=== PATIENT | female | born 1960 | race Caucasian/White ===

== ENCOUNTER → 2017-08-20 | Outpatient (CLI) | payer MEDICARE, OTHER ==
--- NOTE | 2017-08-21 06:47 | MR ---
EXAMINATION TYPE: MR knee RT wo con DATE OF EXAM: 08/20/2017 COMPARISON: Outside MRI knee report June 12, 2016 HISTORY: Right knee pain per order. Pain and swelling with history of prior surgery since falling inj ury June 2017 TECHNIQUE: Multiplanar, multisequence images of the knee is performed without IV contrast. FINDINGS: MEDIAL MENISCUS: Anterior horn is intact without tear. Oblique increased signal posterior horn of med ial meniscus extends to inferior articular surface, findings are suggestive of full-thickness menisca l tear. Fraying along posterior margin is redemonstrated described in prior report. LATERAL MENISCUS: There is triangular shaped increased opacity superior aspect anterior horn of later al meniscus with vertical linear component on sagittal image 21 extending to articular surface. Later al extrusion is seen with marked increased signal anterior meniscal cyst formation on coronal image 2 0. CRUCIATE LIGAMENTS: The anterior and posterior cruciate ligaments are intact and unremarkable. COLLATERAL LIGAMENTS: The medial collateral ligament and lateral collateral ligament complex are inta ct and unremarkable. EXTENSOR MECHANISM: Visualized quadriceps and patellar tendons are intact. EFFUSION: No significant suprapatellar joint effusion. POPLITEAL CYST: There is tiny popliteal/barba cyst seen best axial image 7. TRICOMPARTMENT SPACES: Fairly moderate tricompartment joint space loss is seen. There is fairly moder ate tricompartment spurring. CARTILAGE: Some chondromalacia patella with thinning of posterior patellar articular cartilage is pre sent. No full-thickness loss is seen. There is thinning of articular cartilage medial tibiofemoral co mpartment. BONE MARROW SIGNAL: No focal abnormal marrow signal is appreciated. OTHER: No additional significant abnormality is appreciated. IMPRESSION: 1. Tearing of lateral meniscus with parameniscal cyst formation redemonstrated described in prior rep ort. 2. Suspect new oblique tear posterior horn of medial meniscus. 3. Mild to moderate tricompartment degenerative changes as detailed above, similar findings are discu ssed on prior report. 4. Tiny Barba's cyst.
== END | disposition home or self-care (01) ==
LOC: RADMRIMAIN 13:04
PROVIDERS: ATTEND Physician Assistant
DX: S83.281A Other tear of lateral meniscus, current injury, right knee, initial encounter (principal); M71.21 Synovial cyst of popliteal space [Baker], right knee

== ENCOUNTER → 2019-06-08 | Outpatient (CLI) | payer MEDICARE, OTHER ==
--- NOTE | 2019-06-08 14:42 | MM ---
Reason for exam: additional evaluation requested from abnormal screening. Last mammogram was performed less than 1 month ago. History: Patient is postmenopausal. Benign cyst aspiration, 1989. Physical Findings: Nurse did not find any significant physical abnormalities on exam. MG 3D Work Up W/Cad LT Spot compression CC, spot compression MLO, and ML view(s) were taken of the left breast. Prior study comparison: May 27, 2019, bilateral MG 3d screening mammo w/cad. March 20, 2017, mammogram, performed at [facility]. There are scattered fibroglandular densities. The questioned focal asymmetry disperses on additional views. No significant new findings when compared with previous films. These results were verbally communicated with the patient and result sheet given to the patient on 06/08/19. ASSESSMENT: Negative, BI-RAD 1 RECOMMENDATION: Return to routine screening mammogram schedule for both breasts. Manage on a clinical basis with regard to benign yellowish nipple discharge. Suspicious discharge warranting further evaluation includes clear or bloody spontaneous discharge localized to a single pore on the nipple.
== END | disposition home or self-care (01) ==
LOC: RADMAMWWP 12:59
PROVIDERS: ATTEND Family Medicine
DX: R92.8 Other abnormal and inconclusive findings on diagnostic imaging of breast (principal)
CPT/HCPCS: 77065; G0279; 77061

== ENCOUNTER 2019-06-10 16:18 | Inpatient (IN) | payer MEDICARE, OTHER ==
--- NOTE | 2019-06-10 17:52 | ED ---
Psych HPI - General Chief Complaint: Psychiatric Symptoms Stated Complaint: Medication issues Time Seen by Provider: 06/10/19 17:13 Source: patient, RN notes reviewed, old records reviewed Mode of arrival: ambulatory - History of Present Illness Initial Comments: This is a 59-year-old male the ER for evaluation. Patient here in the ER for evaluation regards to psychiatric illness. Patient states he doesn't want to commit suicide. Patient has history of psychiatric illness. Denies recent drug or alcohol abuse MD Complaint: suicidal ideation, feels depressed -: unknown Associated Psychiatric Symptoms: depression, suicidal ideation History of same: Yes Quality: constant Improves With: none Worsens With: none Context: not taking psychiatric medications Associated Symptoms: denies other symptoms Treatments Prior to Arrival: placed on mental health hold If Self Harm: admits thoughts of self harm - Related Data Home Medications Medication Instructions Recorded Confirmed Pravastatin Sodium [Pravachol] 40 mg PO HS 08/07/16 06/10/19 LORazepam [Ativan] 0.25 mg PO BID@0800,1200 06/10/19 06/10/19 LORazepam [Ativan] 1 mg PO HS 06/10/19 06/10/19 Nicotine 21Mg/24Hr Patch [Habitrol] 1 patch TRANSDERM DAILY 06/10/19 06/10/19 Topiramate [Topamax] 100 mg PO HS 06/10/19 06/10/19 Previous Rx's Medication Instructions Recorded Vortioxetine Hydrobromide 10 mg PO DAILY #14 tablet 06/15/19 [Trintellix] lamoTRIgine [LaMICtal] 100 mg PO HS #14 tab 06/15/19 rOPINIRole HCL [Requip] 0.25 mg PO HS #14 tab 06/15/19 Allergies Allergy/AdvReac Type Severity Reaction Status Date / Time Sulfa (Sulfonamide Allergy Rash/Hives Verified 06/10/19 21:56 Antibiotics) Review of Systems ROS Statement: Those systems with pertinent positive or pertinent negative responses have been documented in the HPI. ROS Other: All systems not noted in ROS Statement are negative. Past Medical History Past Medical History: Hyperlipidemia, Osteoarthritis (OA) History of Any Multi-Drug Resistant Organisms: None Reported Past Surgical History: Back Surgery, Hysterectomy, Orthopedic Surgery Additional Past Surgical History / Comment(s): arthroscopy, cataract removal Past Psychological History: Bipolar, Depression Smoking Status: Current every day smoker Past Alcohol Use History: None Reported Past Drug Use History: None Reported General Exam Limitations: no limitations General appearance: alert, in no apparent distress Head exam: Present: atraumatic, normocephalic, normal inspection Eye exam: Present: normal appearance, PERRL, EOMI. Absent: scleral icterus, conjunctival injection, periorbital swelling ENT exam: Present: normal exam, mucous membranes moist Neck exam: Present: normal inspection. Absent: tenderness, meningismus, lymphadenopathy Respiratory exam: Present: normal lung sounds bilaterally. Absent: respiratory distress, wheezes, rales, rhonchi, stridor Cardiovascular Exam: Present: regular rate, normal rhythm, normal heart sounds. Absent: systolic murmur, diastolic murmur, rubs, gallop, clicks GI/Abdominal exam: Present: soft, normal bowel sounds. Absent: distended, tenderness, guarding, rebound, rigid Extremities exam: Present: normal inspection, full ROM, normal capillary refill. Absent: tenderness, pedal edema, joint swelling, calf tenderness Back exam: Present: normal inspection Neurological exam: Present: alert, oriented X3, CN II-XII intact Psychiatric exam: Present: normal affect, normal mood Skin exam: Present: warm, dry, intact, normal color. Absent: rash Course Vital Signs 06/10/19 06/10/19 16:29 19:14 Temperature 98.3 F Pulse Rate 79 82 Respiratory 16 18 Rate Blood Pressure 116/77 106/67 O2 Sat by Pulse 97 100 Oximetry - Reevaluation(s) Reevaluation #1: 06/10/19 18:30 Medical clear for psychiatric illness Medical Decision Making - Medical Decision Making 59 female admitted for psychiatric evaluation and treatment - Lab Data Result diagrams: 06/11/19 09:15 06/11/19 09:15 Lab Results 06/10/19 06/10/19 06/10/19 Range/Units 18:03 18:03 19:50 WBC 9.0 (3.8-10.6) k/uL RBC 4.60 (3.80-5.40) m/uL Hgb 14.0 (11.4-16.0) gm/dL Hct 43.0 (34.0-46.0) % MCV 93.4 (80.0-100.0) fL MCH 30.5 (25.0-35.0) pg MCHC 32.6 (31.0-37.0) g/dL RDW 13.1 (11.5-15.5) % Plt Count 219 (150-450) k/uL Neutrophils % 66 % Lymphocytes % 25 % Monocytes % 5 % Eosinophils % 2 % Basophils % 0 % Neutrophils # 5.9 (1.3-7.7) k/uL Lymphocytes # 2.3 (1.0-4.8) k/uL Monocytes # 0.4 (0-1.0) k/uL Eosinophils # 0.2 (0-0.7) k/uL Basophils # 0.0 (0-0.2) k/uL Sodium 140 (137-145) mmol/L Potassium 3.9 (3.5-5.1) mmol/L Chloride 109 H (98-107) mmol/L Carbon Dioxide 21 L (22-30) mmol/L Anion Gap 10 mmol/L BUN 21 H (7-17) mg/dL Creatinine 0.99 (0.52-1.04) mg/dL Est GFR (CKD-EPI)AfAm 71 (>60 ml/min/1.73 sqM) Est GFR (CKD-EPI)NonAf 62 (>60 ml/min/1.73 sqM) Glucose 100 H (74-99) mg/dL Calcium 9.8 (8.4-10.2) mg/dL Urine Color Urine Appearance (Clear) Urine pH (5.0-8.0) Ur Specific Monarch (1.001-1.035) Urine Protein (Negative) Urine Glucose (UA) (Negative) Urine Ketones (Negative) Urine Blood (Negative) Urine Nitrite (Negative) Urine Bilirubin (Negative) Urine Urobilinogen (<2.0) mg/dL Ur Leukocyte Esterase (Negative) Urine RBC (0-5) /hpf Urine WBC (0-5) /hpf Salicylates <1.0 mg/dL Urine Opiates Screen Not Detected (NotDetected) Ur Oxycodone Screen Not Detected (NotDetected) Urine Methadone Screen Not Detected (NotDetected) Ur Propoxyphene Screen Not Detected (NotDetected) Acetaminophen <10.0 ug/mL Ur Barbiturates Screen Not Detected (NotDetected) U Tricyclic Antidepress Not Detected (NotDetected) Ur Phencyclidine Scrn Not Detected (NotDetected) Ur Amphetamines Screen Not Detected (NotDetected) U Methamphetamines Scrn Not Detected (NotDetected) U Benzodiazepines Scrn Detected H (NotDetected) Urine Cocaine Screen Not Detected (NotDetected) U Marijuana (THC) Screen Not Detected (NotDetected) Serum Alcohol <10 mg/dL 06/10/19 Range/Units 19:50 WBC (3.8-10.6) k/uL RBC (3.80-5.40) m/uL Hgb (11.4-16.0) gm/dL Hct (34.0-46.0) % MCV (80.0-100.0) fL MCH (25.0-35.0) pg MCHC (31.0-37.0) g/dL RDW (11.5-15.5) % Plt Count (150-450) k/uL Neutrophils % % Lymphocytes % % Monocytes % % Eosinophils % % Basophils % % Neutrophils # (1.3-7.7) k/uL Lymphocytes # (1.0-4.8) k/uL Monocytes # (0-1.0) k/uL Eosinophils # (0-0.7) k/uL Basophils # (0-0.2) k/uL Sodium (137-145) mmol/L Potassium (3.5-5.1) mmol/L Chloride (98-107) mmol/L Carbon Dioxide (22-30) mmol/L Anion Gap mmol/L BUN (7-17) mg/dL Creatinine (0.52-1.04) mg/dL Est GFR (CKD-EPI)AfAm (>60 ml/min/1.73 sqM) Est GFR (CKD-EPI)NonAf (>60 ml/min/1.73 sqM) Glucose (74-99) mg/dL Calcium (8.4-10.2) mg/dL Urine Color Light Yellow Urine Appearance Clear (Clear) Urine pH 6.0 (5.0-8.0) Ur Specific Monarch 1.008 (1.001-1.035) Urine Protein Negative (Negative) Urine Glucose (UA) Negative (Negative) Urine Ketones Negative (Negative) Urine Blood Small H (Negative) Urine Nitrite Negative (Negative) Urine Bilirubin Negative (Negative) Urine Urobilinogen <2.0 (<2.0) mg/dL Ur Leukocyte Esterase Negative (Negative) Urine RBC 5 (0-5) /hpf Urine WBC <1 (0-5) /hpf Salicylates mg/dL Urine Opiates Screen (NotDetected) Ur Oxycodone Screen (NotDetected) Urine Methadone Screen (NotDetected) Ur Propoxyphene Screen (NotDetected) Acetaminophen ug/mL Ur Barbiturates Screen (NotDetected) U Tricyclic Antidepress (NotDetected) Ur Phencyclidine Scrn (NotDetected) Ur Amphetamines Screen (NotDetected) U Methamphetamines Scrn (NotDetected) U Benzodiazepines Scrn (NotDetected) Urine Cocaine Screen (NotDetected) U Marijuana (THC) Screen (NotDetected) Serum Alcohol mg/dL Disposition Clinical Impression: Depression, Suicidal ideation Disposition: TRANSFER TO PSYCH HOSP/UNIT Condition: Stable Is patient prescribed a controlled substance at d/c from ED?: No
[2019-06-10 18:09] LABS: Basophils % (A) 0 %; Eosinophils # (A) 0.2 k/uL (0-0.7); Eosinophils % (A) 2 %; Lymphocytes # (A) 2.3 k/uL (1.0-4.8); Lymphocytes % (A) 25 %; MCH 30.5 pg (25.0-35.0); MCHC 32.6 g/dL (31.0-37.0); MCV 93.4 fL (80.0-100.0); Monocytes # (A) 0.4 k/uL (0-1.0); Monocytes % (A) 5 %; Neutrophils # (A) 5.9 k/uL (1.3-7.7); Neutrophils % (A) 66 %; Platelet Count 219 k/uL (150-450); RDW 13.1 % (11.5-15.5)
[2019-06-10 18:20] LABS: Acetaminophen <10.0 ug/mL; African American GFR (CKD) 71 (>60 ml/min/1.73 sqM); Alcohol <10 mg/dL; Anion Gap 10 mmol/L; Blood Urea Nitrogen 21 mg/dL (7-17); Calcium 9.8 mg/dL (8.4-10.2); Carbon Dioxide 21 mmol/L (22-30); Chloride 109 mmol/L (98-107); Glucose 100 mg/dL (74-99); Potassium 3.9 mmol/L (3.5-5.1); Salicylate <1.0 mg/dL; Sodium 140 mmol/L (137-145)
[2019-06-10 20:31] LABS: Appearance,Urine Clear (Clear); Bilirubin,Urine Negative (Negative); Blood,Urine Small (Negative); Color,Urine Light Yellow; Glucose,Urine (UA) Negative (Negative); Ketones,Urine Negative (Negative); Leukocyte Esterase,Urine Negative (Negative); Nitrite,Urine Negative (Negative); Protein,Urine Negative (Negative); RBC,Urine 5 /hpf (0-5); Specific Gravity,Urine 1.008 (1.001-1.035); Urobilinogen,Urine <2.0 mg/dL (<2.0)
[2019-06-10 20:41] LABS: Amphetamine Screen,Urine Not Detected (NotDetected); Barbiturate Screen,Urine Not Detected (NotDetected); Benzodiazepines Screen,Urine Detected (NotDetected); Cocaine Screen,Urine Not Detected (NotDetected); Methadone Screen, Urine Not Detected (NotDetected); Opiate Screen,Urine Not Detected (NotDetected); Oxycodone Screen, Urine Not Detected (NotDetected); Phencyclidine Screen,Urine Not Detected (NotDetected); Tricyclic Antidepressant,Urine Not Detected (NotDetected); Urn Cannabinoid Scrn Not Detected (NotDetected)
[2019-06-10] MEDS ORDERED: ACETAMINOPHEN TAB 325 MG TAB PO PRN (20:48)
[2019-06-10] MEDS ORDERED: LORazepam 1 MG TAB PO PRN (20:48)
[2019-06-10] MEDS ORDERED: MAGNESIUM HYDROXIDE 2,400 MG/10 ML CUP PO PRN (20:48)
[2019-06-10] MEDS ORDERED: MAG HYDROX/AL HYDROX/SIMETH 30 ML CUP PO PRN (20:48)
[2019-06-10] MEDS ORDERED: lamoTRIgine 25 MG TAB PO SCH (21:00)
[2019-06-10] MEDS: LORazepam 1 MG TAB PO SCH (21:47)
[2019-06-10] MEDS: PRAVASTATIN SODIUM 40 MG TAB PO SCH (21:48)
[2019-06-10] MEDS: TOPIRAMATE 100 MG TAB PO SCH (21:48)
[2019-06-10 21:55] VITALS: BMI 31.1
[2019-06-11] MEDS: NICOTINE 21MG/24HR PATCH TRANSDERM SCH (07:55)
[2019-06-11] MEDS: VORTIOXETINE HYDROBROMIDE 10 MG TABLET PO SCH (07:55)
[2019-06-11] MEDS: LORazepam 0.5 MG TAB PO SCH ×2 (09:11→14:50)
[2019-06-11 09:35] LABS: Basophils % (A) 1 %; Eosinophils # (A) 0.1 k/uL (0-0.7); Eosinophils % (A) 2 %; HCT 43.9 % (34.0-46.0); HGB 13.8 gm/dL (11.4-16.0); Lymphocytes % (A) 33 %; MCH 30.1 pg (25.0-35.0); MCHC 31.4 g/dL (31.0-37.0); MCV 95.9 fL (80.0-100.0); Monocytes # (A) 0.4 k/uL (0-1.0); Monocytes % (A) 6 %; Neutrophils # (A) 3.4 k/uL (1.3-7.7); Neutrophils % (A) 56 %; Platelet Count 211 k/uL (150-450); RBC 4.58 m/uL (3.80-5.40); RDW 13.1 % (11.5-15.5)
[2019-06-11 09:49] LABS: Albumin 4.2 g/dL (3.5-5.0); Potassium 4.1 mmol/L (3.5-5.1); Total Bilirubin 0.4 mg/dL (0.2-1.3); Total Protein 6.8 g/dL (6.3-8.2)
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
--- NOTE | 2019-06-11 15:41 | P.CONS ---
History of Present Illness - Reason for Consult Medical clearance - History of Present Illness 59-year-old female was admitted for bipolar and depression. Patient is presently doing well. Patient had a fever chills nausea vomiting abdominal pain. Patient is complaining of her symptoms of restless leg syndrome for which we'll start her on Requip patient does smoke counseling was provided regarding this Review of Systems REVIEW OF SYSTEMS: CONSTITUTIONAL: No fever, no malaise, no fatigue. HEENT: No recent visual problems or hearing problems. Denied any sore throat. CARDIOVASCULAR: No chest pain, orthopnea, PND, no palpitations, no syncope. PULMONARY: No shortness of breath, no cough, no hemoptysis. GASTROINTESTINAL: No diarrhea, no nausea, no vomiting, no abdominal pain. NEUROLOGICAL: No headaches, no weakness, no numbness. HEMATOLOGICAL: Denies any bleeding or petechiae. GENITOURINARY: Denies any burning micturition, frequency, or urgency. MUSCULOSKELETAL/RHEUMATOLOGICAL: Denies any joint pain, swelling, or any muscle pain. ENDOCRINE: Denies any polyuria or polydipsia. The rest of the 14-point review of systems is negative. Past Medical History Past Medical History: Hyperlipidemia, Osteoarthritis (OA) History of Any Multi-Drug Resistant Organisms: None Reported Past Surgical History: Back Surgery, Hysterectomy, Orthopedic Surgery Additional Past Surgical History / Comment(s): arthroscopy, cataract removal Past Psychological History: Bipolar, Depression Smoking Status: Current every day smoker Past Alcohol Use History: None Reported Past Drug Use History: None Reported Medications and Allergies Home Medications Medication Instructions Recorded Confirmed Type Pravastatin Sodium [Pravachol] 40 mg PO HS 08/07/16 06/10/19 History LORazepam [Ativan] 0.25 mg PO BID@0800,1200 06/10/19 06/10/19 History LORazepam [Ativan] 1 mg PO HS 06/10/19 06/10/19 History Nicotine 21Mg/24Hr Patch [Habitrol 1 patch TRANSDERM DAILY 06/10/19 06/10/19 History 21Mg/24Hr Patch] Topiramate [Topamax] 100 mg PO HS 06/10/19 06/10/19 History Vortioxetine Hydrobromide 10 mg PO DAILY 06/10/19 06/10/19 History [Trintellix] lamoTRIgine [LaMICtal] 50 mg PO HS 06/10/19 06/10/19 History Allergies Allergy/AdvReac Type Severity Reaction Status Date / Time Sulfa (Sulfonamide Allergy Rash/Hives Verified 06/10/19 21:56 Antibiotics) Physical Exam Vitals: Vital Signs Temp Pulse Pulse Resp BP BP Pulse Ox 06/11/19 06:18 98.2 F 84 16 101/54 06/10/19 21:43 97.1 F L 83 16 113/62 06/10/19 20:38 97.8 F 68 18 102/65 97 06/10/19 19:14 82 18 106/67 100 06/10/19 16:29 98.3 F 79 16 116/77 97 PHYSICAL EXAMINATION: GENERAL: The patient is alert and oriented x3, not in any acute distress. Well developed, well nourished. HEENT: Pupils are round and equally reacting to light. EOMI. No scleral icterus. No conjunctival pallor. Normocephalic, atraumatic. No pharyngeal erythema. No thyromegaly. CARDIOVASCULAR: S1 and S2 present. No murmurs, rubs, or gallops. PULMONARY: Chest is clear to auscultation, no wheezing or crackles. ABDOMEN: Soft, nontender, nondistended, normoactive bowel sounds. No palpable organomegaly. MUSCULOSKELETAL: No joint swelling or deformity. EXTREMITIES: No cyanosis, clubbing, or pedal edema. NEUROLOGICAL: Gross neurological examination did not reveal any focal deficits. SKIN: No rashes. Results CBC & Chem 7: 06/11/19 09:15 06/11/19 09:15 Labs: Abnormal Lab Results - Last 24 Hours (Table) 06/10/19 06/10/19 06/10/19 Range/Units 18:03 19:50 19:50 Chloride 109 H (98-107) mmol/L Carbon Dioxide 21 L (22-30) mmol/L BUN 21 H (7-17) mg/dL Creatinine (0.52-1.04) mg/dL Glucose 100 H (74-99) mg/dL Cholesterol (<200) mg/dL LDL Cholesterol, Calc (0-99) mg/dL HDL Cholesterol (40-60) mg/dL Urine Blood Small H (Negative) U Benzodiazepines Scrn Detected H (NotDetected) 06/11/19 Range/Units 09:15 Chloride (98-107) mmol/L Carbon Dioxide (22-30) mmol/L BUN (7-17) mg/dL Creatinine 1.08 H (0.52-1.04) mg/dL Glucose 128 H (74-99) mg/dL Cholesterol 232 H (<200) mg/dL LDL Cholesterol, Calc 141 H (0-99) mg/dL HDL Cholesterol 68 H (40-60) mg/dL Urine Blood (Negative) U Benzodiazepines Scrn (NotDetected) Assessment and Plan Plan: -Restless leg syndrome: Patient was started on low-dose of frequent -Hyperlipidemia patient will be resumed on her home dose of pravastatin but does have blood cholesterol, LDL is elevated at counseling was provided and the af ter dietary modification this 50 to be rechecked in about a month no further intervention at this time -Bipolar and depression management as per primary service -Mild acute renal failure patient will be increased to drink water -Continue nicotine use: Counseling was provided
[2019-06-11 19:38] LABS: Hemoglobin A1C 5.8 % (4.0-6.0)
[2019-06-11] MEDS: TOPIRAMATE 100 MG TAB PO SCH (21:30)
[2019-06-11] MEDS: LORazepam 1 MG TAB PO SCH (21:30)
[2019-06-11] MEDS: lamoTRIgine 100 MG TAB PO SCH (21:31)
[2019-06-11] MEDS: PRAVASTATIN SODIUM 40 MG TAB PO SCH (21:31)
[2019-06-11] MEDS: IBUPROFEN 200 MG TAB PO PRN (22:41)
[2019-06-12] MEDS: NICOTINE 21MG/24HR PATCH TRANSDERM SCH (08:43)
[2019-06-12] MEDS: LORazepam 0.5 MG TAB PO SCH ×2 (08:43→12:37)
[2019-06-12] MEDS: VORTIOXETINE HYDROBROMIDE 10 MG TABLET PO SCH (08:44)
--- NOTE | 2019-06-12 13:30 | P.PN ---
Progress Note - Text Progress Note Date: 06/12/19 Interval History: Patient is a 59-year-old female who was seen today and she reports that she is doing much better, states she is feeling great no longer feeling depressed or suicidal. She states she has more energy and her focus has improved. Patient reports that she slept better. Mental Status: Appearance/Attitude: Patient is neatly and appropriately dressed, makes eye contact and was cooperative. Behavior: Patient does not display any psychomotor agitation or retardation. Speech/Language: Patient's speech was spontaneous of normal volume and rhythm and she is coherent. Thought Process: Patient is goal-directed there is no evidence of loose association or flight of ideas. Thought Content: Patient is denying any auditory or visual hallucinations and no delusions or paranoid ideation or elicited. Patient states that she slept well last night her energy level has improved and she is no longer feeling as depressed. She states her outlook is more positive. She states that she's been attending groups and activities. Suicidal/Homicidal Ideation: Patient denies any current suicidal or homicidal ideation Sensorium/Cognition: Patient is alert and oriented to person, place, and time and her recent and remote memory are grossly intact. Patient states her focus and concentration have improved as well. Mood/Affect: Patient's mood is less depressed her affect is brighter Insight/Judgment: Patient's insight and judgment are fair Assessment: Patient states that she's feeling much better, no longer feeling as depressed and states she is feeling great. She states she is not having any suicidal ideation and no side effects from medication. Patient states she slept well last night and her appetite is good. Patient states that she's been attending groups and activities. She reports her focus and concentration of improved and she is been able to read while on the unit. Plan: Patient will continue on trintellix 10 mg daily, Lamictal 100 mg daily and Topamax 100 mg daily to target her mood, patient and I discussed should her mood remains stable over the next several days we'll consider discharge on Saturday. Patient was agreeable with this plan.
[2019-06-12] MEDS: LORazepam 1 MG TAB PO SCH (21:03)
[2019-06-12] MEDS: PRAVASTATIN SODIUM 40 MG TAB PO SCH (21:03)
[2019-06-12] MEDS: lamoTRIgine 100 MG TAB PO SCH (21:03)
[2019-06-12] MEDS: TOPIRAMATE 100 MG TAB PO SCH (21:05)
[2019-06-13] MEDS: NICOTINE 21MG/24HR PATCH TRANSDERM SCH (07:24)
[2019-06-13] MEDS: VORTIOXETINE HYDROBROMIDE 10 MG TABLET PO SCH (07:24)
[2019-06-13] MEDS: LORazepam 0.5 MG TAB PO SCH ×2 (07:24→11:46)
--- NOTE | 2019-06-13 10:42 | P.PN ---
Progress Note - Text Interval history: The patient is found in the hallway she follows me to an interview room. She has a history of bipolar disorder and was admitted for worsening symptoms of depression in the context of a medication change. She was being transition from Celexa to Trintellix and felt overwhelmed. She states now that the Trintellix is up to 10 mg she states feeling much better. She reports having no symptoms at this time. She is attending groups. She has no questions or concerns for me today. Mental status exam: The patient is alert she is dressed in her own clothing hygiene is adequate. Speech is fluent spontaneous nonpressured. She is pleasant and cooperative for the duration of the session. She reports having no suicidal ideation intent or plan. She reports no homicidal ideation intent or plan. She reports no symptoms of psychosis. She is demonstrating no symptoms of hypomania or regina at this time. She is oriented to person place and date. She demonstrates no verbal or physical aggressiveness no signs of involuntary repetitive movements. Insight and judgment appear to be grossly intact. Affect is appropriate and expressive throughout the session. Plan: The patient is clinically stabilizing. We will continue her medication as written. We will continue assessing her safety risk. At this point I would expect she would be appropriate for discharge on Saturday. Vital signs reviewed. We will continue monitoring for safety and she is encouraged to fully participate in the milieu.
[2019-06-13] MEDS: IBUPROFEN 200 MG TAB PO PRN (11:46)
[2019-06-13] MEDS: lamoTRIgine 100 MG TAB PO SCH (20:18)
[2019-06-13] MEDS: LORazepam 1 MG TAB PO SCH (20:18)
[2019-06-13] MEDS: TOPIRAMATE 100 MG TAB PO SCH (20:18)
[2019-06-13] MEDS: PRAVASTATIN SODIUM 40 MG TAB PO SCH (20:18)
[2019-06-14 06:40] VITALS: RESP 14
[2019-06-14] MEDS: NICOTINE 21MG/24HR PATCH TRANSDERM SCH (08:37)
[2019-06-14] MEDS: VORTIOXETINE HYDROBROMIDE 10 MG TABLET PO SCH (08:37)
[2019-06-14] MEDS: LORazepam 0.5 MG TAB PO SCH ×2 (08:37→12:56)
--- NOTE | 2019-06-14 12:51 | P.PN ---
Progress Note - Text Interval history: The patient is found in her room sleeping she follows me to an interview room. She states that she's been asked parents in some back discomfort due to the bed and had difficulty sleeping last night. She has slept in the morning decompensate. She reports having no questions or concerns regarding her medications. She feels that she is stabilizing. She has been attending some groups. She did have a visit from her last evening. Mental status exam: The patient is alert she's dresser own clothing she is a disheveled appearance. Eye contact is appropriate. She is pleasant and cooperative and easily directable during the session. She reports that her mood is improving she feels safe. She denies having any suicidal or homicidal ideation intent or plan. She demonstrates no evidence of psychosis hypomania or regina. Thought process is linear. Speech is fluent nonpressured and it is spontaneous. She demonstrates no verbal or physical aggressiveness. She demonstrates no involuntary repetitive movements. She is oriented to person place and date. She is spontaneous he describes future oriented thinking. Plan: The patient appears to be clinically stabilizing. She is comfortable with her medications and is having no reported side effects. She is encouraged to fully participate in the groups. We will continue monitoring her for safety. It appears that she would be appropriate for discharge as soon as tomorrow. Vital signs reviewed.
[2019-06-14] MEDS: IBUPROFEN 200 MG TAB PO PRN (12:58)
[2019-06-14] MEDS: lamoTRIgine 100 MG TAB PO SCH (20:55)
[2019-06-14] MEDS: LORazepam 1 MG TAB PO SCH (20:55)
[2019-06-14] MEDS: PRAVASTATIN SODIUM 40 MG TAB PO SCH (20:55)
[2019-06-14] MEDS: TOPIRAMATE 100 MG TAB PO SCH (20:55)
[2019-06-15 06:23] VITALS: BP 103/59; PULSE 81; TEMP 97.6
[2019-06-15] MEDS: VORTIOXETINE HYDROBROMIDE 10 MG TABLET PO SCH (08:33)
[2019-06-15] MEDS: LORazepam 0.5 MG TAB PO SCH ×2 (08:33→12:07)
[2019-06-15] MEDS: NICOTINE 21MG/24HR PATCH TRANSDERM SCH (08:33)
--- NOTE | 2019-06-15 11:58 | P.DS ---
Providers Date of admission: 06/10/19 20:17 Expected date of discharge: 06/15/19 Attending physician: Arelsi Stein MD Consults: 06/10/19 20:48 Consult Physician Routine Consulting Provider: Moiz Persaud Consult Reason/Comments: H & P and medical care Do you want consulting provider notified?: Yes Primary care physician: [facility] Course: Discharge Diagnosis: Bipolar type I disorder, current episode depressed, severe Reason for Admission: Patient is a 59-year-old female who was sent to the emergency room by her private psychiatrist due to having suicidal thoughts with a plan to put herself on a raft and then light herself on fire. Patient is also been having thoughts to cut herself to relieve pain. Patient reports that over the last number of years she has had increasing episodes of depression and is been tried on multiple medications with side effects and no response. Patient states that recently she was slowly titrated off of Celexa and for the last week has not been taking Celexa and was begun on trintellix at 5 mg a day a month ago and yesterday was increased to 10 mg. Patient states that this week that she was off of the Celexa prior to the increase in the new antidepressant she became increasingly depressed, increasing thoughts of suicide and was making plans to act. Patient states she is prevented by her thom and the devastation it would cause her family. Patient states that she has a history of being diagnosed with bipolar disorder beginning at the age of 23 when she attempted suicide by injecting air into her veins as well as taking an overdose. Patient at that time was admitted and doesn't endorse a history of manic episodes where she wasn't sleeping, had increased energy, rapid speech and unrealistic goals and racing thoughts. Patient also describes impulsive sexual behavior, impulsive use of drugs and alcohol and is alternated with periods of depression where she was suicidal and attempted suicide on 2 occasions, her sleep was not restorative she was tired with little energy or motivation irritable and withdrawn. She states that for a period of time in her 20s when she was depressed she wasn't leaving the house nor will she answer in the phone and this lasted for a number of years. She states that in her early 30s she decided to stop her medications completely and from the age of [age] was off medication completely and states that she was functional. Patient states that she took medications from the age of [age] and states that she is uncertain of what she was on but knows that she had been tried on lithium while in the hospital at the age 23 but it was stopped due to side effects she does not know what it was replaced with. She states that when she was restarted on medication at the age of 38 she was feeling depressed and at that time Celexa was the only drug that she was on from 1999 and 2003. She returned to [place] in 2003 and was seen by [facility] in [place] and continued on Celexa and Topamax was added. She began seeing , her current psychiatrist, in 2005 and he added Lamictal to her Topamax and Celexa. Patient states that the depressive episodes have been more of a problem for her than her manic episodes, her depression was getting worse during the winter she tried using light therapy with little results. She states that the 2 of them have tried Abilify, Pristiq, Risperdal and multiple other medications over the last number of years with little response and side effects. Patient states that her depression this past year has increased and persisted even outside of the winter. She states the reason for the trial of the current medication, trintellix. Patient states that she is supposed to be taking Lamictal 100 mg but he decreased it to 50 mg due to feeling sedated during the day. Patient is also taking Ativan 0.25 mg twice a day and 1 mg at bedtime, she states that she uses the doses during the day on a more as-needed basis. Patient states she's been on Ativan for a number of years. Patient does not describe to me any anxiety symptoms and when asked why she wasn't leaving the house in the past for a number of years she's really not able to describe panic attacks or panic disorder but states that she was afraid to leave the house but cannot elaborate further. Patient states that she is currently depressed, feeling tired with no energy or sleep is not restful, she states she is having suicidal ideation, she denies any current or prior auditory or visual hallucinations and no paranoid or delusional ideation. Patient states that she is feeling more withdrawn. Mental status on Admission: Appearance/Attitude: Patient is casually dressed, makes good eye contact and was cooperative. Behavior: She does not exhibit any psychomotor agitation or retardation Speech/Language: Patient's speech is spontaneous of normal volume and rhythm and she is coherent Thought Process: Patient is goal-directed there is no evidence of loose association or flight of ideas Thought Content: A she denies any auditory or visual hallucinations and no delusions or paranoid ideation or elicited. Patient states she is feeling depressed, tired, with decreased energy and no motivation. She states her sleep is not restful, she uses Ativan to assist with her sleep. Patient states her appetite is fair. She states she has suicidal thoughts and has had plans prior to coming into the hospital but does not act on them due to her thom and her family. Patient also has urges to cut herself prior to coming to the hospital to relieve her pain Suicidal/Homicidal Ideation: Patient reports continued suicidal ideation but with no current intent or plan to act and no current homicidal ideation Sensorium/Cognition: Patient is alert and oriented to person, place, and time and her recent and remote memory are grossly intact Mood/Affect: Patient's mood is depressed her affect is slightly blunted Insight/Judgment: Patient's insight and judgment are fair Hospital Course: Patient was admitted on a voluntary basis, placed on routine observation in group and activity therapy were ordered. Patient also had routine laboratory studies as well as a medical consultation. Patient was continued on her Pravachol, she is continued on her Topamax 100 mg at bedtime and her Trintellix 10 mg in the morning that had been increased on the day of her admission. Patient was also continued on Ativan 0.25 mg at 8 AM and 12 noon and 1 mg at bedtime. Patient's lamotrigine was increased back to 100 mg which the patient is supposed to been taking but he decreased it because she thought it was making her sleepy during the day. Patient reported that on the medications she was no longer feeling depressed, her mood stabilized she was no longer having any suicidal thoughts. She states that she was sleeping and eating well and attending groups and activities. She stated she no longer felt irritable and felt more motivated. While in the hospital the patient complained of restless legs and was also begun on request 0.25 mg at bedtime and she reports good benefit from this. Patient reported no side effects from her medications was not feeling sleepy during the day and felt that she was doing well on her current meds and ready to return home. Patient reported no side effects from her medications. Allergies Sulfa (Sulfonamide Antibiotics) Allergy (Verified 06/10/19 21:56) Rash/Hives Laboratory Last Values WBC 6.0 k/uL (3.8-10.6) 06/11/19 09:15 RBC 4.58 m/uL (3.80-5.40) 06/11/19 09:15 Hgb 13.8 gm/dL (11.4-16.0) 06/11/19 09:15 Hct 43.9 % (34.0-46.0) 06/11/19 09:15 MCV 95.9 fL (80.0-100.0) 06/11/19 09:15 MCH 30.1 pg (25.0-35.0) 06/11/19 09:15 MCHC 31.4 g/dL (31.0-37.0) 06/11/19 09:15 RDW 13.1 % (11.5-15.5) 06/11/19 09:15 Plt Count 211 k/uL (150-450) 06/11/19 09:15 Neutrophils % 56 % 06/11/19 09:15 Lymphocytes % 33 % 06/11/19 09:15 Monocytes % 6 % 06/11/19 09:15 Eosinophils % 2 % 06/11/19 09:15 Basophils % 1 % 06/11/19 09:15 Neutrophils # 3.4 k/uL (1.3-7.7) 06/11/19 09:15 Lymphocytes # 2.0 k/uL (1.0-4.8) 06/11/19 09:15 Monocytes # 0.4 k/uL (0-1.0) 06/11/19 09:15 Eosinophils # 0.1 k/uL (0-0.7) 06/11/19 09:15 Basophils # 0.0 k/uL (0-0.2) 06/11/19 09:15 Sodium 141 mmol/L (137-145) 06/11/19 09:15 Potassium 4.1 mmol/L (3.5-5.1) 06/11/19 09:15 Chloride 107 mmol/L (98-107) 06/11/19 09:15 Carbon Dioxide 26 mmol/L (22-30) 06/11/19 09:15 Anion Gap 8 mmol/L 06/11/19 09:15 BUN 17 mg/dL (7-17) 06/11/19 09:15 Creatinine 1.08 mg/dL (0.52-1.04) H 06/11/19 09:15 Est GFR (CKD-EPI)AfAm 64 (>60 ml/min/1.73 sqM) 06/11/19 09:15 Est GFR (CKD-EPI)NonAf 56 (>60 ml/min/1.73 sqM) 06/11/19 09:15 Glucose 128 mg/dL (74-99) H 06/11/19 09:[address] Glu mg/dL 120 06/11/19 09:15 Hemoglobin A1c 5.8 % (4.0-6.0) 06/11/19 09:15 Calcium 10.0 mg/dL (8.4-10.2) 06/11/19 09:15 Total Bilirubin 0.4 mg/dL (0.2-1.3) 06/11/19 09:15 AST 24 U/L (14-36) 06/11/19 09:15 ALT 24 U/L (9-52) 06/11/19 09:15 Alkaline Phosphatase 55 U/L (38-126) 06/11/19 09:15 Total Protein 6.8 g/dL (6.3-8.2) 06/11/19 09:15 Albumin 4.2 g/dL (3.5-5.0) 06/11/19 09:15 Triglycerides 115 mg/dL (<150) 06/11/19 09:15 Cholesterol 232 mg/dL (<200) H 06/11/19 09:15 LDL Cholesterol, Calc 141 mg/dL (0-99) H 06/11/19 09:15 HDL Cholesterol 68 mg/dL (40-60) H 06/11/19 09:15 TSH 1.670 mIU/L (0.465-4.680) 06/11/19 09:15 Urine Color Light Yellow 06/10/19 19:50 Urine Appearance Clear (Clear) 06/10/19 19:50 Urine pH 6.0 (5.0-8.0) 06/10/19 19:50 Ur Specific [address] 1.008 (1.001-1.035) 06/10/19 19:50 Urine Protein Negative (Negative) 06/10/19 19:50 Urine Glucose (UA) Negative (Negative) 06/10/19 19:50 Urine Ketones Negative (Negative) 06/10/19 19:50 Urine Blood Small (Negative) H 06/10/19 19:50 Urine Nitrite Negative (Negative) 06/10/19 19:50 Urine Bilirubin Negative (Negative) 06/10/19 19:50 Urine Urobilinogen <2.0 mg/dL (<2.0) 06/10/19 19:50 Ur Leukocyte Esterase Negative (Negative) 06/10/19 19:50 Urine RBC 5 /hpf (0-5) 06/10/19 19:50 Urine WBC <1 /hpf (0-5) 06/10/19 19:50 Salicylates <1.0 mg/dL 06/10/19 18:03 Urine Opiates Screen Not Detected (NotDetected) 06/10/19 19:50 Ur Oxycodone Screen Not Detected (NotDetected) 06/10/19 19:50 Urine Methadone Screen Not Detected (NotDetected) 06/10/19 19:50 Ur Propoxyphene Screen Not Detected (NotDetected) 06/10/19 19:50 Acetaminophen <10.0 ug/mL 06/10/19 18:03 Ur Barbiturates Screen Not Detected (NotDetected) 06/10/19 19:50 U Tricyclic Antidepress Not Detected (NotDetected) 06/10/19 19:50 Ur Phencyclidine Scrn Not Detected (NotDetected) 06/10/19 19:50 Ur Amphetamines Screen Not Detected (NotDetected) 06/10/19 19:50 U Methamphetamines Scrn Not Detected (NotDetected) 06/10/19 19:50 U Benzodiazepines Scrn Detected (NotDetected) H 06/10/19 19:50 Urine Cocaine Screen Not Detected (NotDetected) 06/10/19 19:50 U Marijuana (THC) Screen Not Detected (NotDetected) 06/10/19 19:50 Serum Alcohol <10 mg/dL 06/10/19 18:03 Discharge Mental Status: Appearance/Attitude: Patient is neatly and appropriately dressed, makes eye contact and was cooperative. Behavior: Patient did not display any psychomotor agitation or retardation. Speech/Language: Patient's speech was spontaneous of normal volume and rhythm and she was coherent. Thought Process: Patient was goal-directed there is no evidence of loose association or flight of ideas Thought Content: Patient denied any auditory or visual hallucinations no delusions or paranoid ideation were elicited. Patient stated that her mood was much more stable, she was eating and sleeping well and states that she was no longer feeling depressed. She reported feeling less irritable and more motivated. She reported no side effects from the medications and was not feeling sedated during the day. She also reported that she was not having restless legs at night and her sleep had improved. Suicidal/Homicidal Ideation: Patient denied any current suicidal or homicidal ideation Sensorium/Cognition: Patient was alert and oriented to person, place, and time and her recent and remote memory were grossly intact. Mood/Affect: Patient's mood was stable her affect is appropriate Insight/Judgment: patient's insight and judgment are fair Risk Assessment: patient's risk for readmission is low should she be compliant with medication and follow-up care Discharge Plan: patient will return home, she will follow up with Dr. Ahuja and will continue on Lamictal 100 mg at bedtime, Topamax 100 mg at bedtime, Requip 0.25 mg at bedtime, Pravachol 40 mg at bedtime and Trintellix 10 mg in the morning and Ativan 0.25 mg at 8 AM and 12 noon and 1 mg at bedtime. Patient states that she only requires a prescription for the Requip, Lamictal and Trintellix and will be given such. Patient was encouraged to be compliant with medication and follow-up care. She was also advised to avoid all alcohol and drugs. Patient Condition at Discharge: Stable Plan - Discharge Summary Discharge Rx Participant: Yes New Discharge Prescriptions: New lamoTRIgine [LaMICtal] 100 mg PO HS #14 tab rOPINIRole HCL [Requip] 0.25 mg PO HS #14 tab Continue Pravastatin Sodium [Pravachol] 40 mg PO HS Topiramate [Topamax] 100 mg PO HS LORazepam [Ativan] 1 mg PO HS LORazepam [Ativan] 0.25 mg PO BID@0800,1200 Nicotine 21Mg/24Hr Patch [Habitrol] 1 patch TRANSDERM DAILY Vortioxetine Hydrobromide [Trintellix] 10 mg PO DAILY #14 tablet Discontinued lamoTRIgine [LaMICtal] 50 mg PO HS Discharge Medication List Pravastatin Sodium [Pravachol] 40 mg PO HS 08/07/16 [History] LORazepam [Ativan] 0.25 mg PO BID@0800,1200 06/10/19 [History] LORazepam [Ativan] 1 mg PO HS 06/10/19 [History] Nicotine 21Mg/24Hr Patch [Habitrol] 1 patch TRANSDERM DAILY 06/10/19 [History] Topiramate [Topamax] 100 mg PO HS 06/10/19 [History] Vortioxetine Hydrobromide [Trintellix] 10 mg PO DAILY #14 tablet 06/15/19 [Rx] lamoTRIgine [LaMICtal] 100 mg PO HS #14 tab 06/15/19 [Rx] rOPINIRole HCL [Requip] 0.25 mg PO HS #14 tab 06/15/19 [Rx] Follow up Appointment(s)/Referral(s): [facility] [Outside] - 06/19/19 2:00 pm (Dr Talamantes ) Eran Burns MD [Primary Care Provider] - 1-2 days Patient Instructions/Handouts: Bipolar Disorder (DC), Depression (DC), Suicide Prevention (DC) Activity/Diet/Wound Care/Special Instructions: Activity and diet as tolerated. No guns or weapons in the home. Refrain from alcohol and drugs that are not prescribed by your physician. Take all medications as prescribed by your physicians, and attend all follow up appointments as scheduled. If in need of medication refills, please go to your primary care physician, or your out patient psychiatric provider. If in crisis, please call , or go the nearest ER for an evaluation. Discharge Disposition: HOME SELF-CARE
== END 2019-06-15 13:08 | disposition home or self-care (01) | DRG 885 ==
LOC: EC 16:18 → 3MHU 20:17
PROVIDERS: ADMIT Psychiatry & Neurology Psychiatry; ATTEND Psychiatry & Neurology Psychiatry
DX: F31.4 Bipolar disorder, current episode depressed, severe, without psychotic features (principal); E78.5 Hyperlipidemia, unspecified; F17.200 Nicotine dependence, unspecified, uncomplicated; G25.81 Restless legs syndrome; M19.90 Unspecified osteoarthritis, unspecified site; Z79.899 Other long term (current) drug therapy; Z90.710 Acquired absence of both cervix and uterus; Z88.2 Allergy status to sulfonamides; Z98.49 Cataract extraction status, unspecified eye; Z98.890 Other specified postprocedural states
CPT/HCPCS: 36415; 80048; 80053; 80061; 80306; 80320; 80329; 81001; 82075; 83036; 83520; 84443; 85025; 99285

== ENCOUNTER → 2019-11-27 | Outpatient (CLI) | payer MEDICARE, OTHER ==
[~2019-11-27] MED LIST: COSYNTROPIN 0.25 MG VIAL IVP ONE; SODIUM CHLORIDE 0.9% 500 ML 500 ML in EMPTY BAG 1 BAG IV PRN
[2019-11-27 08:29] VITALS: BP 106/71; PULSE 71; RESP 18; TEMP 98.5
== END | disposition home or self-care (01) ==
LOC: PROCWHC3 08:07
PROVIDERS: ATTEND Nurse Practitioner Family
DX: I95.9 Hypotension, unspecified (principal)
CPT/HCPCS: 82533; 82024; 96374; J0834

== ENCOUNTER 2023-09-18 10:23 | Day surgery (SDC) | payer MEDICARE, OTHER ==
[2023-09-12 14:23] VITALS: BMI 32.1
--- NOTE | 2023-09-18 08:49 | P.GSHP ---
History of Present Illness H&P Date: 09/18/23 CHIEF COMPLAINT: GERD HISTORY OF PRESENT ILLNESS: The patient is a 63-year-old female who presents reports gastroesophageal reflux disease. Upper endoscopy was offered for further evaluation and management. PAST MEDICAL HISTORY: Please see list. PAST SURGICAL HISTORY: Please see list. MEDICATIONS: Please see list. ALLERGIES: Please see list. SOCIAL HISTORY: No illicit drug use FAMILY HISTORY: No reports of Crohn disease or ulcerative colitis. REVIEW OF ORGAN SYSTEMS: CONSTITUTIONAL: No reports of fevers or chills. GI: Denies any blood in stools or constipation. PHYSICAL EXAM: VITAL SIGNS: Stable GENERAL: Well-developed and pleasant in no acute distress. HEENT: No scleral icterus. Extraocular movements grossly intact. Moist buccal mucosa. NECK: Supple without lymphadenopathy. CHEST: Unlabored respirations. Equal bilateral excursions. CARDIOVASCULAR: Regular rate and rhythm. Distal 2+ pulses. ABDOMEN: Soft, nondistended. MUSCULOSKELETAL: No clubbing, cyanosis, or edema. ASSESSMENT: 1. Gastroesophageal reflux disease PLAN: 1. Recommend proceeding with an upper endoscopy Past Medical History Past Medical History: GERD/Reflux, Hyperlipidemia, Osteoarthritis (OA) Additional Past Medical History / Comment(s): stage 3 kidney disease no meds History of Any Multi-Drug Resistant Organisms: None Reported Past Surgical History: Back Surgery, Hysterectomy, Orthopedic Surgery, Tubal Ligation, Uterine Ablation Additional Past Surgical History / Comment(s): arthroscopy, cataract removal,knee surgery sinus surgery removal of polyps to throat Past Anesthesia/Blood Transfusion Reactions: No Reported Reaction Smoking Status: Former smoker - Past Family History Brother(s) Family Medical History: CVA/TIA Medications and Allergies Home Medications Medication Instructions Recorded Confirmed Type Pravastatin Sodium [Pravachol] 40 mg PO HS 08/07/16 09/12/23 History LORazepam [Ativan] 0.25 mg PO BID@0800,1200 06/10/19 09/12/23 History LORazepam [Ativan] 1 mg PO HS 06/10/19 09/12/23 History Nicotine 21Mg/24Hr Patch [Habitrol] 1 patch TRANSDERM DAILY 06/10/19 09/12/23 History Topiramate [Topamax] 100 mg PO HS 06/10/19 09/12/23 History lamoTRIgine [LaMICtal] 100 mg PO HS #14 tab 06/15/19 09/12/23 Rx Citalopram Hydrobromide [CeleXA] 10 mg PO DAILY 11/27/19 09/12/23 History Cholecalciferol (Vitamin D3) 1,250 mcg PO DAILY 09/12/23 09/12/23 History [Vitamin D3] Cyanocobalamin (Vitamin B-12) 1,000 mcg PO DAILY 09/12/23 09/12/23 History [Vitamin B-12] Elderberry Fruit [Sambucus 5 ml PO DAILY 09/12/23 09/12/23 History Elderberry Orig Syrup] Multivitamin [Multivitamins Adult 1 each PO DAILY 09/12/23 09/12/23 History Gummies] Omeprazole Magnesium [PriLOSEC OTC] 20 mg PO DAILY 09/12/23 09/12/23 History Zinc Gluconate [Zinc] 50 mg PO DAILY 09/12/23 09/12/23 History Allergies Allergy/AdvReac Type Severity Reaction Status Date / Time Sulfa (Sulfonamide Allergy Rash/Hives Verified 09/12/23 14:02 Antibiotics)
[2023-09-18] MEDS: LACTATED RINGERS 1,000 ML IV SCH ×2 (10:33→10:49)
[2023-09-18 10:46] VITALS: RESP 16; TEMP 97.5
[2023-09-18] MEDS ORDERED: LIDOCAINE 1% (10MG/ML) FOR IV START INTRADERMA ONE (10:51)
[2023-09-18] MEDS ORDERED: LIDOCAINE 1% INJ 10MG/ML (20 ML MDV) ONE (11:45)
[2023-09-18] MEDS ORDERED: PROPOFOL 10 MG/ML 20 ML VIAL IV ONE (11:45)
[2023-09-18 12:23] VITALS: BP 122/78; PULSE 74
--- NOTE | 2023-09-18 18:58 | P.PCN ---
Date of Procedure: 09/18/23 Description of Procedure: PREOPERATIVE DIAGNOSIS: Gastroesophageal reflux disease. Diaphragmatic hiatal hernia Dysphagia POSTOPERATIVE DIAGNOSIS: Gastroesophageal reflux disease. Gastritis. Diaphragmatic hiatal hernia OPERATION: Esophagogastroduodenoscopy with biopsies along esophagus, antrum and duodenum SURGEON: Lizz Smith MD ANESTHESIA: MAC. INDICATIONS: The patient is a 63-year-old female who presents with hiatal hernia and reflux disease. Benefits and risks of the procedure were described. Informed consent was obtained. DESCRIPTION: The patient was brought into the endoscopy suite and laid in the left lateral decubitus position. An Olympus gastroscope was passed along the posterior oropharynx down to the distal esophagus where the squamocolumnar junction was encountered at 33 cm from the incisors. The stomach was entered and no bile reflux was found. Additional findings are listed below. Biopsies with cold forceps were obtained of the antrum. The first through third portion of the duodenum was examined. Retroflexion of the scope confirmed Hill grade 4 lower esophageal valve. The squamocolumnar junction demonstrated LA grade B erosive esophagitis. The stomach was desufflated. The patient tolerated the procedure well. FINDINGS: Squamocolumnar junction 33 cm from the incisors. Diaphragmatic hiatus at 37 cm. Hiatal hernia, 4 cm Hill grade 4 lower esophageal valve. LA grade B erosive esophagitis. Biopsies obtained of the duodenum. Chronic gastritis with biopsies obtained. RECOMMENDATIONS: Upper endoscopy as needed. Recommend repair of hiatal hernia due to symptoms Plan - Discharge Summary Discharge Rx Participant: No New Discharge Prescriptions: Continue Pravastatin Sodium [Pravachol] 40 mg PO HS Topiramate [Topamax] 100 mg PO HS LORazepam [Ativan] 1 mg PO HS LORazepam [Ativan] 0.25 mg PO BID@0800,1200 Nicotine 21Mg/24Hr Patch [Habitrol] 1 patch TRANSDERM DAILY lamoTRIgine [LaMICtal] 100 mg PO HS #14 tab Citalopram Hydrobromide [CeleXA] 10 mg PO DAILY Multivitamin [Multivitamins Adult Gummies] 1 each PO DAILY Cholecalciferol (Vitamin D3) [Vitamin D3] 1,250 mcg PO DAILY Cyanocobalamin (Vitamin B-12) [Vitamin B-12] 1,000 mcg PO DAILY Omeprazole Magnesium [PriLOSEC OTC] 20 mg PO DAILY Elderberry Fruit [Sambucus Elderberry Orig Syrup] 5 ml PO DAILY Zinc Gluconate [Zinc] 50 mg PO DAILY Discharge Medication List Pravastatin Sodium [Pravachol] 40 mg PO HS 08/07/16 [History] LORazepam [Ativan] 0.25 mg PO BID@0800,1200 06/10/19 [History] LORazepam [Ativan] 1 mg PO HS 06/10/19 [History] Nicotine 21Mg/24Hr Patch [Habitrol] 1 patch TRANSDERM DAILY 06/10/19 [History] Topiramate [Topamax] 100 mg PO HS 06/10/19 [History] lamoTRIgine [LaMICtal] 100 mg PO HS #14 tab 06/15/19 [Rx] Citalopram Hydrobromide [CeleXA] 10 mg PO DAILY 11/27/19 [History] Cholecalciferol (Vitamin D3) [Vitamin D3] 1,250 mcg PO DAILY 09/12/23 [History] Cyanocobalamin (Vitamin B-12) [Vitamin B-12] 1,000 mcg PO DAILY 09/12/23 [History] Elderberry Fruit [Clarissa Wynn Orig Syrup] 5 ml PO DAILY 09/12/23 [History] Multivitamin [Multivitamins Adult Gummies] 1 each PO DAILY 09/12/23 [History] Omeprazole Magnesium [PriLOSEC OTC] 20 mg PO DAILY 09/12/23 [History] Zinc Gluconate [Zinc] 50 mg PO DAILY 09/12/23 [History] Follow up Appointment(s)/Referral(s): Lizz Smith MD [STAFF PHYSICIAN] - 10/08/23 3:00 pm Patient Instructions/Handouts: *Surgery [facility] - (Anesthesia) Discharge Instructions Outpatient Surgery, Hiatal Hernia (DC) Discharge Disposition: HOME SELF-CARE
== END 2023-09-18 12:56 | disposition home or self-care (01) ==
LOC: ORWHC2ENDO 10:23
PROVIDERS: ATTEND Surgery Plastic and Reconstructive Surgery
DX: K29.50 Unspecified chronic gastritis without bleeding (principal); K21.00 Gastro-esophageal reflux disease with esophagitis, without bleeding; K44.9 Diaphragmatic hernia without obstruction or gangrene; K31.9 Disease of stomach and duodenum, unspecified; E78.5 Hyperlipidemia, unspecified; M19.90 Unspecified osteoarthritis, unspecified site; Z90.710 Acquired absence of both cervix and uterus; Z98.51 Tubal ligation status; Z87.891 Personal history of nicotine dependence; Z82.3 Family history of stroke; Z88.2 Allergy status to sulfonamides; Z79.899 Other long term (current) drug therapy
CPT/HCPCS: 88305; 43239; J2001; J2704

== ENCOUNTER → 2024-06-11 | Outpatient (CLI) | payer MEDICARE, OTHER ==
--- NOTE | 2024-06-11 10:45 | USB ---
Reason for Exam: Clinical finding. Patient History: Menarche at age 10. First Full-Term at age 15. Hysterectomy at age 36. Postmenopausal. Benign Cyst Aspiration. Risk Values: Elayne 5 year model risk: 1.2%. NCI Lifetime model risk: 4.4%. Technique: Method: Targeted. Prior Study Comparison: 06/08/2019 Left Diagnostic Mammogram, [facility]. 08/15/2020 Bilateral MG screening mammo w CAD - 2, Unknown. 02/13/2023 Bilateral Screening Mammogram, Unknown. Findings: The area of palpable concern of the left breast, the axilla of the left breast and the retroareolar of the left breast were scanned. At the level marked by the BB, there is a 0.9 x 0.6 x 1.0 cm echogenic focus which can be compatible with a small subcutaneous lipoma. No suspicious shadowing lesions evident. No cysts are evident. Left axilla appears unremarkable.. Overall Assessment: Benign, BI-RAD 2 Management: Screening Mammogram of both breasts in 1 year. A clinical breast exam by your physician is recommended on an annual basis and results should be correlated with mammographic findings. This exam should not preclude additional follow-up of suspicious palpable abnormalities. Results were given to the patient verbally at the time of exam. Electronically signed and approved by: Bon Gamboa D.O. Radiologis
== END | disposition home or self-care (01) ==
LOC: RADMAMWWP 08:53
PROVIDERS: ATTEND Family Medicine
DX: N63.21 Unspecified lump in the left breast, upper outer quadrant (principal); Z78.0 Asymptomatic menopausal state
CPT/HCPCS: 77066; 76642; G0279; 77062